=== PATIENT | male | born 1980 | race African-American/Black ===

== ENCOUNTER 2024-12-27 05:59 | Emergency (ER) | payer SELFPAY ==
--- OUTSIDE RECORDS SUMMARY | 2024-12-27 06:02 | XMS REPORT | Continuity of Care Document ---
Author Name Unknown Address [address] [facility] [address] [place] [address] [facility] [place] Address [address] [facility] [place] [address] Care Team Providers Care Drying Tunnel Operator Name Role Phone Frances Ortega Attending Clinician Unavailable Irma Long Admitting Clinician Unavailable Payers Payer Name Policy Type Policy Number Effective Date Expirati on Date Source Allergies, Adverse Reactions, Alerts Allergy Name Allergy Type Status Severity Reaction(s) Onset Date Inactive Date Treating Clinician Comments Source No Known Allergie s DA Active U 2023-09 00:00: 00 [facility] Procedures Procedure Date / Time Performed Performing Clinicia n Source MEASURE OF CARDIAC SAMPL PRESSURE, L HEART, PERC 2024-08-24 00:00:00 [facility] FLUOROSCOPY OF MULT COR ART USING L OSM CONTRAST 2024-08-24 00:00:00 [facility] FLUOROSCOPY OF LEFT HEART USING LOW OSMOLAR CONTRA 2024-08-24 00:00:00 [facility] Encounters Start Date/Time End Date/Time Encounter Type Admission Type Attending Clinicians Care Facility Care Department Encounter ID Source 2024-08-24 05:43:00 2024-08-25 12:52:00 Inpatient EM Frances Ortega [facility] MEDI.01 [id number] [facility] Results Test Description Test Time Test Comments Results Result Co mments Source COMMENTS: To be done morning of Heart CathPROTHROMBIN [id number] 05:41:00* Test Item Value Reference Range Interpretation Comme nts PROTHROMBIN TIME PATIENT (test code = PTP) 12.7 SECONDS 9.3-12.9 N INTERNATIONAL NORMAL RATIO (test code = INR) 1.1 0.8-1.2 N TARGET INR BY INDICATION Indication INR1. Prophylaxis of venous thrombosis 2.0 - 3.0 (orthopedic surgery), Prophylaxis of venous thrombosis (other than high-risk surgery), Treatment of Deep Vein Thrombosis/Pulmonary Embolism, Prevention of systemic embolism - Tissue heart valves, Acute Myocardial Infarction (to prevent systemic embolism), Valvular heart disease, Atrial Fibrillation, Bileaflet mechanical valve in aortic position.2. Mechanical prosthetic valves (high risk), 2.5 - 3.5 Presence of Lupus Anticoagulant or Antiphospholipid Antibodies, Prevention of systemic embolism - Acute Myocardial Infarction (to prevent recurrent infarct). COMMENTS: STAT if not done within 24 hours prior to initiation of heparinComment: infusionTHROMBOPLASTIN TIME [id number] 05:41:00* Test Item Value Reference Range Interpretation Comme nts THROMBOPLASTIN TIME PARTIAL (test code = PTT) 30.4 Seconds 25.0-39.5 N Therapeutic Rang e: 58.8 - 96.0 Seconds Effective 07/09/2024 COMMENTS: STAT if not done within 24 hours prior to initiation of heparinComment: infusionCBC W/AUTO [id number] 05:31:00* Test Item Value Reference Range Interpretation Comme nts WHITE BLOOD CELL (test code = WBC) 7.0 x10 3/uL 4.5-11.0 N RED BLOOD CELL (test code = RBC) 5.60 x10 6/uL 4.00-5.60 N HEMOGLOBIN (test code = HGB) 14.8 g/dL 12.5-16.9 N HEMATOCRIT (test code = HCT) 45.2 % 37.5-50.7 N MEAN CELL VOLUME (test code = MCV) 80.7 fL 81.0-99.0 L MEAN CELL HGB (test code = MCH) 26.4 pg 27.0-33.0 L MEAN CELL HGB CONCETRATION (test code = MCHC) 32.7 g/dL 33.0-37.0 L RED CELL DISTRIBUTION WIDTH CV (test code = RDW) 15.4 % 11.5-14.5 H RED CELL DISTRIBUTION WIDTH SD (test code = RDW-SD) 43.9 fL 37.0-54.0 N PLATELET COUNT (test code = PLT) 220 x10 3/uL 150-400 N MEAN PLATELET VOLUME (test c ode = MPV) 9.0 fL 7.0-9.0 N NEUTROPHIL % (test code = NT%) 51.6 % 56.0-77.0 L IMMATURE GRANULOCYTE % (test code = IG%) 0.9 % 0.0-2.0 N LYMPHOCYTE % (test code = LY%) 34.1 % 14.0-32.0 H MONOCYTE % (test code = MO%) 10.7 % 4.8-9.0 H EOSINOPHIL % (test code = EO%) 1.7 % 0.3-3.7 N BASOPHIL % (test code = BA%) 1.0 % 0.0-2.0 N NUCLEATED RBC % (test code = NRBC%) 0.0 % 0-0 N NEUTROPHIL # (test code = NT#) 3.64 x10 3/uL 2.0-7.6 N IMMATURE GRANULOCYTE # (test code = IG#) 0.06 x10 3/uL 0.00-0.03 H LYMPHOCYTE # (test code = LY#) 2.40 x10 3/uL 1.0-3.8 N MONOCYTE # (test code = MO#) 0.75 x10 3/uL 0.1-0.8 N EOSINOPHIL # (test code = EO#) 0.12 x10 3/uL 0.0-0.2 N BASOPHIL # (test code = BA#) 0.07 x10 3/uL 0.0-0.2 N NUCLEATED RBC # (test code = NRBC#) 0.00 x10 3/uL 0.0-0.1 N COMMENTS: To be done morning of Heart CathPROTHROMBIN [id number] 15:24:00* Test Item Value Reference Range Interpretation Comme nts PROTHROMBIN TIME PATIENT (test code = PTP) 13.7 SECONDS 9.3-12.9 H INTERNATIONAL NORMAL RATIO (test code = INR) 1.2 0.8-1.2 N TARGET INR BY INDICATION Indication INR1. Prophylaxis of venous thrombosis 2.0 - 3.0 (orthopedic surgery), Prophylaxis of venous thrombosis (other than high-risk surgery), Treatment of Deep Vein Thrombosis/Pulmonary Embolism, Prevention of systemic embolism - Tissue heart valves, Acute Myocardial Infarction (to prevent systemic embolism), Valvular heart disease, Atrial Fibrillation, Bileaflet mechanical valve in aortic position.2. Mechanical prosthetic valves (high risk), 2.5 - 3.5 Presence of Lupus Anticoagulant or Antiphospholipid Antibodies, Prevention of systemic embolism - Acute Myocardial Infarction (to prevent recurrent infarct). TROP-I HIGH [id number] 10:33:00* Test Item Value Reference Range Interpretation Comme nts TROP-I HIGH SENSITIVITY (test code = TROPIHS) 4375 ng/L 0-54 HH CAUTION: Units o f the current test methodology (ng/L) differfrom the prior test methodology (ng/mL) by a factor of 1000. 99th Percentile Upper Reference Limit (URL): Females: 34 ng/LMales: 54 ng/L In order to distinguish acute elevations of high sensitivitytroponin from other clinical conditions, the FourthUniversal Definition of Myocardial Infarction stressesclinical assessment and the demonstration of a rise and/orfall in serial troponin results above the URL. These results were obtained using Siemens Atellica IM TnIHreagent. Results from different methodologies should not becompared to one another as quantitative results and URLs mayvary by method. HEPATIC FUNCTION [id number] 09:39:00* Test Item Value Reference Range Interpretation Comme nts TOTAL PROTEIN (test code = PROT) 7.4 g/dL 6.4-8.2 N ALBUMIN (test code = ALB) 3.70 g/dL 3.4-5.0 N BILIRUBIN TOTAL (test code = BILT) 0.30 mg/dL 0.0-1.0 N BILIRUBIN DIRECT (test code = BILD) < 0.10 MG/DL 0.1-0.3 L BILIRUBIN INDIRECT (test cod e = BILIND) 0.20 MG/DL SGOT/AST (test code = AST) 30 IUnit/L 8-34 N SGPT/ALT (test code = ALT) 23 IUnit/L 10-49 N ALKALINE PHOSPHATASE TOTAL ( test code = ALKP) 104 IUnit/L 20-125 N [id number] 09:39:00* Test Item Value Reference Range Interpretation Comme nts MAGNESIUM (test code = MAG) 2.01 mg/dL 1.6-2.6 N TSH REFLEX TO [id number] 09:39:00* Test Item Value Reference Range Interpretation Comme nts TSH REFLEX TO FT4 (test code = TSHREFLEX) 1.05 IU/mL 0.42-5.47 N BASIC METABOLIC [id number] 09:39:00* Test Item Value Reference Range Interpretation Comme nts SODIUM (test code = NA) 138 mEq/L 134-147 N POTASSIUM (test code = K) 4.3 mEq/L 3.4-5.0 N CHLORIDE (test code = CL) 106 mEq/L 100-108 N CARBON DIOXIDE (test code = CO2) 24 mEq/l 21-33 N ANION GAP (test code = GAP) 12 0-20 N GLUCOSE (test code = GLU) 84 mg/dL 77-141 N BLOOD UREA NITROGEN (test code = BUN) 11 mg/dL 7-25 N GLOMERULAR FILTRATION RATE (test code = GFR) 94.6 95-105 L The Glomerular Filtration Rate is a calculated parameterbased on serum Creatinine, patient age and sex. GFR valuesless than 60 mL/min/1.73 square meters are indicative ofChronic Kidney Disease. Values less than 15 mL/min/1.73square meters indicate Kidney failure. The calculation forGFR is based on the CKD-EPI (2020) calculation. This formulais race indifferent and is the recommended formula for GFRby the National Kidney Foundation for Adults.The GFR will not calculate if the sex is unknown or if thepatient's age is <18 years. CREATININE (test code = CREAT) 1.0 mg/dL 0.6-1.3 N CALCIUM (test code = CA) 10.0 mg/dL 8.0-10.5 N LIPID PROFILE (CORONARY RISK)2024-08-24 09:39:00* Test Item Value Reference Range Interpretation Comme nts TRIGLYCERIDES (test code = TRIG) 254 mg/dL 40-150 H CHOLESTEROL (test code = CHOL) 184 mg/dL <200 CHOLESTEROL/HDL RATIO (test code = CHOLHDL) 6.05 RATIO 3.43-4.97 H RISK ASSOCIATED WITH CHOL/HDL RATIOS: RISK MALE FEMALE1/2 AVERAGE 3.43 3.27AVERAGE 4.97 4.442X AVERAGE 9.55 7.053X AVERAGE 23.39 11.04 NOTE THAT THE REFERENCE VALUE IS RELATEDTO RISK LEVELS RECOMMENDED BY THE NATL.HEART, LUNG, AND BLOOD INST. HDL CHOLESTEROL (test code = HDL) 30.4 MG/DL 40-60 L HDL Interpreta tion < 40.0 mg/dL Low (undesirable, high risk)> 60.0 mg/dL High (desirable, low risk) Reference interval for healthy adults was established by theNational Cholesterol Education Program (NCEP). LIPOPROTEIN LDL (test code = LDL) 129.0 mg/dL 0-100 H <100 [id number] 0-129 NEAR OPTIMAL/ABOVE [id number] HIGH>FB=588 VERY HIGH*Guidelines provided by the National Cholesterol EducationProgram Adult Treatment Panel III CBC W/O [id number] 07:21:00* Test Item Value Reference Range Interpretation Comme nts WHITE BLOOD CELL (test code = WBC) 11.0 x10 3/uL 4.5-11.0 N RED BLOOD CELL (test code = RBC) 5.52 x10 6/uL 4.00-5.60 N HEMOGLOBIN (test code = HGB) 14.7 g/dL 12.5-16.9 N HEMATOCRIT (test code = HCT) 44.9 % 37.5-50.7 N MEAN CELL VOLUME (test code = MCV) 81.3 fL 81.0-99.0 N MEAN CELL HGB (test code = MCH) 26.6 pg 27.0-33.0 L MEAN CELL HGB CONCETRATION (test code = MCHC) 32.7 g/dL 33.0-37.0 L RED CELL DISTRIBUTION WIDTH CV (test code = RDW) 15.7 % 11.5-14.5 H RED CELL DISTRIBUTION WIDTH SD (test code = RDW-SD) 45.1 fL 37.0-54.0 N PLATELET COUNT (test code = PLT) 237 x10 3/uL 150-400 N MEAN PLATELET VOLUME (test c ode = MPV) 9.4 fL 7.0-9.0 H TROP-I HIGH [id number] 06:46:00* Test Item Value Reference Range Interpretation Comme nts TROP-I HIGH SENSITIVITY (test code = TROPIHS) 2767 ng/L 0-54 HH Critical result called to AKBAR ACHCHRISSIE Little [id number] at 0644 08/24/24Nurse read back result and tech confirmed it's correct? YESCAUTION: Units of the current test methodology (ng/L) differfrom the prior test methodology (ng/mL) by a factor of 1000. 99th Percentile Upper Reference Limit (URL): Females: 34 ng/LMales: 54 ng/L In order to distinguish acute elevations of high sensitivitytroponin from other clinical conditions, the FourthUniversal Definition of Myocardial Infarction stressesclinical assessment and the demonstration of a rise and/orfall in serial troponin results above the URL. These results were obtained using Siemens Atellica IM TnIHreagent. Results from different methodologies should not becompared to one another as quantitative results and URLs mayvary by method. Notes Date/Time Note Provider Source 2024-10-07 00:31:00 [facility] DT Operative Note REPORT#:[id number] REPORT STATUS: Signed REPORT INITIALIZATION DATE:10/07/24 TIME: 003 PATIENT: CARMEN TAPIA UNIT #: [id number] ROOM/BED: [id number] : 78 AGE: 44 SEX: M ATTEND: Frances Ortega DO ADM AUTHOR: Christina Quesada MD REPT SERVICE DT/TIME: 08/24/242049 * ALL edits or amendments must be made on the electronic/computer document * Operative Report Operative Note Note: Date of procedure: 08/24/2024 Indication for procedure: Chest pain, patient was ruled in for non-STEMI Procedure performed: 1. Ultrasound-guided vascular access of the right common femoral artery 2. Left heart catheterization plus coronary angiogram 3. Moderate sedation Procedure description: After informed consent was obtained patient was brought into the Production Team Member patient was prepped and draped sterile fashion right common femoral artery was accessed using ultrasound guidance and micropuncture technique then 6 Jordanian sheath was inserted. Then I went with JL 4 catheter engage the left main multiple pictures were taken. Then I went up with a JR4 catheter across the aortic valve obtained LVEDP then I performed a pullback there was no bleeding. Then I engage the RCA multiple pictures were taken. Findings: 1. Left main: Large size vessel trifurcates into LAD, ramus intermedius and left circumflex 2. LAD: Large size vessel patent 3. Left circumflex: Large size vessel gives multiple OM's there is a 50 to 60% disease in the mid left circumflex 4. RCA: Large size vessel dominant gives RPDA and posterior lateral branch and patent. Impression/plan: Moderate disease in the left circumflex otherwise patent coronary arteries. Recommend DAPT for 1 year then aspirin for lifelong and high intensity statins. at 0034 RPT #:[id number] END OF REPORT [facility] 2024-08-25 23:21:00 [id number] [place] [address] PATIENT NAME: CARMEN TAPIA ADMIT DATE: 08/24/24 ACCOUNT NO: [id number] ROOM NO: [address] AGE: 43 REPORT TYPE: eECHOCARDIOGRAM REPORT SEX: M ADMITTING PHYSICIAN:Irma Long MD ATTENDING PHYSICIAN:Frances Ortega DO *[place] [address] Transthoracic Echocardiogram Patient: Carmen Tapia Study Date: 08/24/2024 BP: 184 / 108 URN: [id number] Location: : 1980 Age: 43 Gender: M Height: 71 in / 180.3 cm Weight: 220 lb / 99.8 kg BMI/BSA: 30.7 kg/m 2 / 2.26 m 2 *Ordering Physician: * Irma Long *Interpreting Physician: * Christina Quesada MD *Social Media Strategist: * Tessa Duckworth Indications: NSTEMI. Study data: Transthoracic echocardiogram. Procedure: A transthoracic echocardiogram was performed. Image quality was adequate. Complete 2D, complete spectral Doppler, and color Doppler. Location: Bedside. Patient room number: CVPREP 3. Heart rate: 73 bpm. Findings Left ventricle: The cavity size is normal. Wall thickness is mildly increased. Systolic function is normal. The estimated ejection fraction is 55-60%. Wall motion is normal; there are no regional wall motion abnormalities. Left ventricular diastolic function parameters are normal. Right ventricle: The cavity size is normal. Systolic function is normal. PATIENT NAME: CARMEN TAPIA Left atrium: The atrium is normal in size. Right atrium: The atrium is normal in size. Aorta: Aortic root: The root is normal-sized. Aortic valve: The valve is structurally normal. The valve is trileaflet. There is no evidence of stenosis. There is no regurgitation. Mitral valve: The valve is structurally normal. There is no evidence of stenosis. There is trace regurgitation. Tricuspid valve: The valve is structurally normal. There is trivial regurgitation. Pulmonic valve: The valve is structurally normal. There is no regurgitation. Pericardium: There is no pericardial effusion. Pulmonary arteries: The main pulmonary artery is normal-sized. Systemic veins: Inferior vena cava: The IVC is normal-sized. Measurements Left ventricle Value Ref GLS, 2D -15 % --------- GUERLINE, LAX 4.2 cm 4.2 - 5.8 ESD, LAX 3.0 cm 2.5 - 4.0 FS, LAX 29 % 25 - 43 IVS, ED 1.3 cm 0.6 - 1.0 PW, ED 1.3 cm 0.6 - 1.0 IVS/PW, ED 1 --------- EF 56 % 52 - 72 E', lat marisabel, TDI 11.9 cm/sec >=10.0 E/e', lat marisabel, TDI 8 <=13 E', med marisabel, TDI 12.0 cm/sec >=7.0 E/e', med marisabel, TDI 8 --------- E', avg, TDI 12.0 cm/sec --------- E/e', avg, TDI 8 <=14 LVOT Value Ref Diam, S 2.00 cm --------- Area 3.1 cm 2 --------- Peak kayy, S 1.18 m/sec --------- Mean kayy, S 0.74 m/sec --------- VTI, S 24.3 cm --------- Peak grad, S 6 mm Hg --------- Mean grad, S 3 mm Hg --------- SV 76 ml --------- SV/bsa 34 ml/m 2 --------- Right ventricle Value Ref GUERLINE, LAX 2.0 cm --------- Pressure, S 18 mm Hg --------- RVOT Value Ref Peak v, S 0.81 m/sec --------- Peak grad, S 3 mm Hg --------- PATIENT NAME: CARMEN TAPIA Left atrium Value Ref Vol/bsa, S 22 ml/m 2 16 - 34 Vol/bsa, ES, 1-p A4C 19 ml/m 2 12 - 37 Vol, ES, 2-p 52 ml --------- Vol/bsa, ES, 2-p 23 ml/m 2 16 - 34 Vol/bsa, ES, A/L 19 ml/m 2 16 - 34 AP dim, ES MM 3.2 cm 3.0 - 4.0 LA/Ao root ratio, MM 1 --------- Aortic valve Value Ref Leaflet sep, MM 1.87 cm --------- Peak v, S 1.2 m/sec --------- Mean v, S 0.7 m/sec --------- VTI, S 23.1 cm --------- Mean grad, S 2 mm Hg --------- Peak grad, S 5.8 mm Hg --------- LVOT/AV, VTI ratio 1.05 --------- SHAHZAD, VTI 3.30 cm 2 --------- LVOT/AV, Vpeak ratio 0.98 --------- SHAHZAD, Vmax 3.09 cm 2 --------- Mitral valve Value Ref E-septal separation 0.6 cm --------- E-F slope 0.07 m/sec --------- Peak E 0.93 m/sec --------- Peak A 0.63 m/sec --------- Decel time 146 ms --------- PHT 43 ms --------- Peak grad, D 3.4 mm Hg --------- Peak E/A ratio 1.48 --------- MVA, PHT 5.1 cm 2 --------- Tricuspid valve Value Ref TR peak v 1.6 m/sec <=2.8 Peak RV-RA grad, S 10 mm Hg --------- Aortic root Value Ref Root diam, ED MM 3.2 cm --------- Pulmonary artery Value Ref Pressure, S 15.0 mm Hg --------- Systemic veins Value Ref Estimated CVP 8 mm Hg --------- Conclusions Summary: 1. Left ventricle: The cavity size is normal. Wall thickness is mildly increased. Systolic function is normal. The estimated ejection fraction is 55-60%. Wall motion is normal; there are no regional wall motion abnormalities. Left ventricular diastolic function parameters are normal. PATIENT NAME: CARMEN TAPIA 2. Right ventricle: The RV pressure during systole is 18 mm Hg. 3. Pericardium, extracardiac: There is no pericardial effusion. Electronically signed by Christina Quesada MD 08/25/2024 23:21 at 2321 PATIENT NAME: CARMEN TAPIA [facility] 2024-08-25 12:19:00 [facility] Cardiology Progress Note REPORT#:[id number] REPORT STATUS: Signed REPORT INITIALIZATION DATE:08/25/24 TIME: 1219 PATIENT: CARMEN TAPIA UNIT #: [id number] ROOM/BED: [place] [id number] : [birth year] AGE: 44 SEX: M ATTEND: Aroldo Ortegaen ADM AUTHOR: Faby Yu AGACNP REPT SERVICE DT/TIME: 08/25/24 1219 * ALL edits or amendments must be made on the electronic/computer document * Subjective Patient reports: No: complaints. Objective General VS/I O: 24 hour I O ending at 0700: 08/25 0700 08/24 1900 Intake Total Output Total Balance Patient 97.5 kg 100 kg Weight Weight Bed scale Stated/Reported Measurement Method Vital Signs: Date Time Temp Pulse Resp B/P B/P Pulse O2 O2 Flow FiO2 Mean Ox Delivery Rate 08/25 1134 36.5 78 17 139/89 105.5 98 Room air 08/25 1028 89 141/92 107.9 08/25 0814 73 142/93 109.1 08/25 0805 37.1 78 18 158/106 123.1 99 Room air 08/25 0438 36.9 77 16 131/86 101.2 98 08/25 0033 36.7 77 18 145/77 99.8 98 08/24 2201 37.1 83 16 155/99 117.4 96 08/24 1557 37.1 78 16 181/89 98 PATIENT WEIGHT: Weight (lb): 214 Weight (oz): 15.21 Weight (kg): 97.500 Medications: Active Meds + DC'd Last 24 Hrs Carvedilol (COREG) 0 .STK-MED ONE PO (DC) Atorvastatin Calcium (LIPITOR) 40 MG 2100 PO Hydralazine HCl (APRESOLINE) 0 .STK-MED ONE .ROUTE (DC) Midazolam HCl (VERSED) 0 .STK-MED ONE .ROUTE (DC) Fentanyl Citrate (SUBLIMAZE) 0 .STK-MED ONE .ROUTE (DC) Midazolam HCl (VERSED) 0 .STK-MED ONE .ROUTE (DC) Heparin Sodium (HEPARIN SODIUM) 0 .STK-MED ONE .ROUTE (DC) Heparin Sodium/Sodium Chloride (HEPARIN 1,000 UNITS/NS 500ML) 500 ML .STK- MED ONE IV (DC) Lidocaine HCl (LIDOCAINE HCL/PF) 0 .STK-MED ONE .ROUTE (DC) Heparin Sodium/Sodium Chloride (HEPARIN 2,000 UNITS/NS 1,000mL) 1,000 ML .STK-MED ONE IV (DC) Iopamidol (ISOVUE-370 100ML) 0 .STK-MED ONE IV (DC) Nitroglycerin/Dextrose (NITROGLYCERIN 50,000MCG/D5W 250ML) 250 ML .STK-MED ONE IV (DC) Enoxaparin Sodium (lovENOX) 100 MG Q12H SUBQ (CAN) Carvedilol (COREG) 3.125 MG C BK DIN PO Heparin Sodium (HEPARIN 5000 UNITS/ML) 6,000 UNIT ONCE ONE IV (CAN) Heparin Sodium (HEPARIN 5000 UNITS/ML) 4,000 UNIT ONCE ONE IV (DC) Heparin Sodium (HEPARIN 5000 UNITS/ML) 5,000 UNIT ASDIR PRN PRN IV Heparin Sodium (HEPARIN 5000 UNITS/ML) 4,000 UNIT ASDIR PRN PRN IV Heparin Sodium (Porcine) (HEPARIN 25,000 UNITS/ 1/2NS 500ML) 500 ML ASDIR IV (PEND) Losartan Potassium (COZAAR) 25 MG DAILY PO Aspirin (ASPIRIN) 81 MG DAILY PO Famotidine (PEPCID) 20 MG DAILY PO Nicotine (NICODERM) 14 MG DAILY TRANSDERM Acetaminophen (TYLENOL) 650 MG Q4H PRN PRN PO Docusate Sodium (COLACE) 100 MG BID PRN PRN PO Hydralazine HCl (APRESOLINE) 10 MG Q6H PRN PRN IV Hydrocodone Bitart/Acetaminophen (NORCO 5/325) 1 TAB Q6H PRN PRN PO Hydrocodone Bitart/Acetaminophen (NORCO 10/325) 1 TAB Q4H PRN PRN PO Morphine Sulfate (morphine SULFATE) 4 MG Q4H PRN PRN IV Nitroglycerin (NITROSTAT) 0.4 MG Q5M PRN PRN SL Ondansetron HCl (ZOFRAN) 4 MG Q4H PRN PRN IV Potassium Chloride (POTASSIUM CHLORIDE 20MEQ TAB.ER) 40 MEQ DAILY PRN PRN PO Sodium Chloride (SODIUM CHLORIDE 0.9%) 1,000 ML .[id number] IV Physical Exam General appearance: alert, awake ENT: normal nose Neck: full range of motion, non-tender, normal thyroid Cardiovascular: CV assessment: regular rate and rhythm, BP pulses = bilaterally, normal heart sounds, pedal pulses present Respiratory: clear to auscultation, no distress Abdomen: soft, non-tender, normal bowel sounds, no distention Genitourinary: no bladder distention, no flank pain, no urinary catheter Upper extremity: UE assessment: normal capillary refill, normal temperature Lower extremity: LE assessment: normal capillary refill, normal temperature Right groin site: intact, no bleeding, no bruit, no drainage Musculoskeletal: full range of motion, normal inspection, straight leg raise Skin: dry, intact, normal color Psychiatry: normal affect, normal mood Results Findings/Data: Laboratory Tests 08/25 446 Chemistry Sodium (134 - 147 mEq/L) 139 Potassium (3.4 - 5.0 mEq/L) 4.1 Chloride (100 - 108 mEq/L) 106 Carbon Dioxide (21 - 33 mEq/l) 26 Anion Gap (0 - 20) 12 BUN (7 - 25 mg/dL) 9 Creatinine (0.6 - 1.3 mg/dL) 0.8 Glomerular Filtr Rate (95 - 105) 111.2 H Glucose (77 - 141 mg/dL) 81 Calcium (8.0 - 10.5 mg/dL) 8.8 Laboratory Tests 08/25 1446 Coagulation INR (0.8 - 1.2) 1.1 1.2 PTT (Miguel Ángel) (25.0 - 39.5 Seconds) 30.4 PT Patient/Control Mix (9.3 - 12.9 SECONDS) 12.7 13.7 H Laboratory Tests 08/25 446 Hematology WBC (4.5 - 11.0 x10 3/uL) 7.0 RBC (4.00 - 5.60 x10 6/uL) 5.60 Hgb (12.5 - 16.9 g/dL) 14.8 Hct (37.5 - 50.7 %) 45.2 MCV (81.0 - 99.0 fL) 80.7 L MCH (27.0 - 33.0 pg) 26.4 L MCHC (33.0 - 37.0 g/dL) 32.7 L RDW (11.5 - 14.5 %) 15.4 H Plt Count (150 - 400 x10 3/uL) 220 MPV (7.0 - 9.0 fL) 9.0 Neut % (Auto) (56.0 - 77.0 %) 51.6 L Lymph % (Auto) (14.0 - 32.0 %) 34.1 H Giles % (Auto) (4.8 - 9.0 %) 10.7 H Eos % (Auto) (0.3 - 3.7 %) 1.7 Baso % (Auto) (0.0 - 2.0 %) 1.0 Neut # (Auto) (2.0 - 7.6 x10 3/uL) 3.64 Lymph # (Auto) (1.0 - 3.8 x10 3/uL) 2.40 Giles # (Auto) (0.1 - 0.8 x10 3/uL) 0.75 Eos # (Auto) (0.0 - 0.2 x10 3/uL) 0.12 Baso # (Auto) (0.0 - 0.2 x10 3/uL) 0.07 Abs Immat Gran (auto) (0.00 - 0.03 x10 3/uL) 0.06 H Immature Gran % (0.0 - 2.0 %) 0.9 Nucleated RBC % (0 - 0 %) 0.0 Nucleated RBCs # (Man) (0.0 - 0.1 x10 3/uL) 0.00 Microbiology Date/Time Procedure - Status Source Growth 08/24 1338 MRSA DNA Surveillance Screen - COMP NASAL Results: labs reviewed, vital signs reviewed, rhythm personally rev'd Diagnosis, Assessment Plan Plan discussed with: patient, spouse/partner, collaborating MD, nurse Free Text DxA P Notes Free Text DxA P Notes: 43-year-old male no significant past medical history except for chronic tobacco use smokes half a pack for 30 years transferred from [facility] with symptoms of chest pain and elevated troponin level patient had EKG did not show history of any STEMI. 1. NSTEMI * 08/24/24: s/p LHC, showed RCA with 60% stenosis, continue medical therapy and agressive risk factors modification (smoking cessation, control blood pressure) * no need for P2Y12i as he did not have stent * continue ASA, statin, BB 2. Hypertension * BP improved * continue carvedilol * advised to check BP daily and record 3. Tobacco abuse * counseled to quit smoking Ok to [place] home. Outpatient follow-up with Dr. Quesada. Medical decision making by Dr. Quesada. at 1252 at [phone] RPT #:[id number] END OF REPORT [facility] 2024-08-25 11:22:00 [facility] Hospitalist Discharge Summary REPORT#:[id number] REPORT STATUS: Signed REPORT INITIALIZATION DATE:08/25/24 TIME: 1121 PATIENT: CARMEN TAPIA UNIT #: [id number] ROOM/BED: [place] [id number] : [birth year] AGE: 43 SEX: M ATTEND: Frances Ortega DO ADM AUTHOR: Frances Ortega DO REPT SERVICE DT/TIME: 08/25/24 112 * ALL edits or amendments must be made on the electronic/computer document * General Information Date of admission: Observation Start Date: Date of admission: 08/24/24 Discharge date: 08/25/24 Discharge diagnosis: nstemi Hospital course: 43-year-old male with PMH of tobacco abuse, transferred from [facility] for higher level of care for cardiology evaluation for NSTEMI, where patient presented with chest pain, found to have troponin of 2253 and BNP of 268. Patient reports symptoms started 4 days ago, intermittent chest pain, in retrosternal, lower right and lower left chest location, radiating to left upper extremity, dull in nature, associated with heartburn. Patient denies any other complaint like headache, dizziness, sweating, shortness of breath, nausea, diarrhea or constipation or any urinary symptoms or leg swelling. Patient's blood pressure was elevated at outside hospital, here it is elevated to 140s. He does not have any history of hypertension. He had stress test and echocardiogram done 8 months ago for yearly checkup at his work, at that time stress test was negative. No other complaints. patient s/p LHC w no intervention .10/25/23: s/p LHC, showed RCA with 60% stenosis, continue medical therapy and agressive risk factors modification ( smoking cessation, control blood pressure). DC 34 min Consultants: cardiology Free Text DxA P Notes Free text DxA P notes: This is a 43-year-old male with PMH of tobacco abuse, transferred from [facility] for higher level of care for cardiology evaluation for NSTEMI , where patient presented with chest pain, found to have troponin of 2253 and BNP of 268. Assessment and plans: NSTEMI: First set troponin elevated to 2253, trend troponin x 2 EKG NSR Complaint of intermittent chest pain for 4 days duration. Currently does not complain of chest pain Follow-up with TSH, lipid panel, echocardiogram Telemonitoring Patient received aspirin, Plavix at outside facility Baby aspirin, atorvastatin, full dose Lovenox, as needed NTG Cardiology consult Keep patient n.p.o. for possible intervention Elevated BNP: Follow-up with echocardiogram Elevated BP: No previous history of HTN, elevated BP may be related to anxiety Monitor, start on BP medication if BP continues to stay elevated Hydralazine as needed Acid reflux: Famotidine Tobacco abuse: Smokes 7 cigarettes daily Counseled to quit Nicotine patch Patient is not on any prescription medication at home N.p.o., IV fluid hydration till seen by cardiology Lovenox for DVT prophylaxis Famotidine for acid reflux Labs now CODE STATUS: Full code NOK is patient's girlfriend, Zoran Patient does not have advanced directive Med Rec Med Rec Discharge meds: Start taking the following new medications: NICOTINE (NICODERM CQ 14 MG) 14 MG/24 HOUR PATCH 14 MILLIGRAM TRANSDERMAL DAILY. Days = 30 Qty = 30 Refills = 3 ATORVASTATIN (LIPITOR) 40 MG TAB 40 MILLIGRAM ORAL 2100 Days = 30 Qty = 30 Refills = 3 LOSARTAN (LOSARTAN) 25 MG TAB 25 MILLIGRAM ORAL DAILY. Days = 30 Qty = 30 Refills = 3 carvediloL (carvediloL) 3.125 MG TAB 3.125 MILLIGRAM ORAL WITH BREAKFAST AND DINNER. Days = 30 Qty = 60 Refills = 3 ASPIRIN EC (ECOTRIN) 81 MG TAB.EC 81 MILLIGRAM ORAL DAILY. Days = 30 Qty = 30 Refills = 3 FAMOTIDINE (PEPCID) 20 MG TAB 20 MILLIGRAM ORAL DAILY. Days = 30 Qty = 30 Refills = 1 CLOPIDOGREL (PLAVIX) 75 MG TAB 75 MILLIGRAM ORAL DAILY. Days = 30 Qty = 30 Refills = 3 Objective Head/Eyes: atraumatic, clear cornea, EOMI, normal conjunctiva/sclera, PERRLA ENT: moist mucosal membranes Neck: full range of motion Cardiovascular: normal heart sounds, regular rate rhythm Respiratory: clear to auscultation Abdomen: normal bowel sounds, soft Extremities: moves all, no edema Musculoskeletal: normal inspection Neuro/ASSESSMENT COORDINATOR: alert, oriented X 3, CNII-XII intact, normal speech Skin: intact, no rash Psychiatry: normal affect Discharge Instructions PCP Discharge to: Home/Self Care Additional Discharge Routines: Orthotics Assistant Follow-Up, Add. instructions Diet: Cardiac Activity: As Tolerated, Light Duty Additional instructions: Please take medication as prescribed and control blood pressure. Please keep blood pressure log and stop smoking. Please return if symptoms worsen. Follow-up Appointments Consulting provider 1: Provider 1: Christina Quesada MD Specialty: CardiologyInterventional Consult follow up timeframe: In 1-2 weeks Quality: Discharge Current Medications Current medication review: I attest that the foregoing medication list in the medical record is true, accurate, and complete to the best of my knowledge. Tobacco Use/Counseling Tobacco use/counseling: tobacco user at 1356 RPT #:[id number] END OF REPORT [facility] 2024-08-24 15:12:00 [facility] ([facility]) Clinical Note REPORT#:[id number] REPORT STATUS: Signed REPORT INITIALIZATION DATE:08/24/24 TIME: 1511 PATIENT: CARMEN TAPIA UNIT #: [id number] ROOM/BED: [place] [id number] : 78 AGE: 43 SEX: M ATTEND: Frances Ortega DO ADM AUTHOR: Frances Ortega DO REPT SERVICE DT/TIME: 08/24/241511 * ALL edits or amendments must be made on the electronic/computer document * Clinical Note Note: Patient evaluated by admitting physcian this AM. Patient w chest pain and NSTEMI w troponin in 2,000 and 4,000. Patient given FD lovenox, cardiology consulted . Started on antihypertensives and patient scheduled for [facility] at 4PM. Discussed risk factors , blood pressure control and smoking cessation with patient. at 1515 RPT #:[id number] END OF REPORT [facility] 2024-08-24 09:57:00 [facility] ([facility]) Cardiology Consultation REPORT#:[id number] REPORT STATUS: Signed REPORT INITIALIZATION DATE:08/24/24 TIME: 956 PATIENT: CARMEN TAPIA UNIT #: [id number] ROOM/BED: [place] [id number] : 78 AGE: 44 SEX: M ATTEND: Frances Ortega DO ADM AUTHOR: Tejas Cruz MD R1 REPT SERVICE DT/TIME: 08/24/24956 * ALL edits or amendments must be made on the electronic/computer document * History of Present Illness HPI Reason for consult: Chest pain , elevated trop. Chief complaint: Chest pain. HPI: Carmen Friend 41-year-old male patient no significant past medical history transferred from [facility] with complaints of chest pain and elevated troponin level. Patient stated he has been his usual state of health known history of chronic tobacco use smokes half a pack for past 30 years, for the past 4 days he had burning sensation in the chest associate with nausea and shortness of breath, because of the worsening of symptoms patient was initially evaluated [facility] had elevated troponin level, patient received aspirin Plavix transferred to our facility. Patient today morning received full dose of Lovenox. Group Home Manager consulted for elevated troponin level. History - Adult longitudinal Additional medical history: None Additional surgical history: Ventral hernia surgery Additional family history: Father of colon cancer. He was a smoker. Alcohol use: Denies EtOH use Drug use: Denies recreational drugs Smoking status for patients 13 years old or older: Current every day smoker Allergies: Coded Allergies: No Known Allergies (08/24/24) Review of Systems Free Text ROS Notes Free Text ROS Notes: All other systems were reviewed negative except as above mentioned in H P. Objective General VS/I O: Vital Signs: Date Time Temp Pulse Resp B/P B/P Pulse O2 O2 Flow FiO2 Mean Ox Delivery Rate 08/24 1200 97.3 76 18 160/103 122.4 100 Room air 08/24 0513 98.1 78 18 141/88 105 100 Room air 24 hour I O ending at 0700: 08/24 0700 08/23 1900 Intake Total Output Total Balance Patient 100 kg Weight Weight Stated/Reported Measurement Method PATIENT WEIGHT: Weight (lb): Weight (oz): Weight (kg): 100.000 Medications: Active Meds + DC'd Last 24 Hrs Atorvastatin Calcium (LIPITOR) 40 MG 2100 PO Enoxaparin Sodium (lovENOX) 100 MG Q12H SUBQ Aspirin (ASPIRIN) 81 MG DAILY PO Famotidine (PEPCID) 20 MG DAILY PO Nicotine (NICODERM) 14 MG DAILY TRANSDERM Enoxaparin Sodium (lovENOX) 100 MG ONCE ONE SUBQ (DC) Acetaminophen (TYLENOL) 650 MG Q4H PRN PRN PO Docusate Sodium (COLACE) 100 MG BID PRN PRN PO Hydralazine HCl (APRESOLINE) 10 MG Q6H PRN PRN IV Hydrocodone Bitart/Acetaminophen (NORCO 5/325) 1 TAB Q6H PRN PRN PO Hydrocodone Bitart/Acetaminophen (NORCO 10/325) 1 TAB Q4H PRN PRN PO Morphine Sulfate (morphine SULFATE) 4 MG Q4H PRN PRN IV Nitroglycerin (NITROSTAT) 0.4 MG Q5M PRN PRN SL Ondansetron HCl (ZOFRAN) 4 MG Q4H PRN PRN IV Potassium Chloride (POTASSIUM CHLORIDE 20MEQ TAB.ER) 40 MEQ DAILY PRN PRN PO Sodium Chloride (SODIUM CHLORIDE 0.9%) 1,000 ML .[id number] IV Physical Exam General appearance: alert, awake, oriented Head/Eyes: atraumatic, clear cornea, EOMI, normal conjunctiva/sclera, normocephalic, PERRL ENT: moist mucosal membranes, normal nose, normal pharynx Neck: full range of motion, non-tender, normal thyroid Cardiovascular: CV assessment: regular rate and rhythm, BP pulses = bilaterally, normal heart sounds, pedal pulses present Respiratory: clear to auscultation, no distress Abdomen: soft, non-tender, normal bowel sounds, no distention Genitourinary: no bladder distention Upper extremity: UE assessment: normal capillary refill, normal temperature Lower extremity: LE assessment: normal capillary refill, normal temperature Musculoskeletal: full range of motion, normal inspection, straight leg raise Skin: dry, intact, normal color Results Findings/Data: Laboratory Tests 08/24 08/24 08/24 0910 0518 0518 Chemistry Sodium (134 - 147 mEq/L) 138 Potassium (3.4 - 5.0 mEq/L) 4.3 Chloride (100 - 108 mEq/L) 106 Carbon Dioxide (21 - 33 mEq/l) 24 Anion Gap (0 - 20) 12 BUN (7 - 25 mg/dL) 11 Creatinine (0.6 - 1.3 mg/dL) 1.0 Glomerular Filtr Rate (95 - 105) 94.6 L Glucose (77 - 141 mg/dL) 84 Calcium (8.0 - 10.5 mg/dL) 10.0 Magnesium (1.6 - 2.6 mg/dL) 2.01 Total Bilirubin (0.0 - 1.0 mg/dL) 0.30 Direct Bilirubin (0.1 - 0.3 MG/DL) < 0.10 L Indirect Bilirubin (MG/DL) 0.20 AST (8 - 34 IUnit/L) 30 ALT (10 - 49 IUnit/L) 23 Total Alk Phosphatase (20 - 125 IUnit/L) 104 Troponin I High Sens (0 - 54 ng/L) 4375 *H 2767 *H Total Protein (6.4 - 8.2 g/dL) 7.4 Albumin (3.4 - 5.0 g/dL) 3.70 Triglycerides (40 - 150 mg/dL) 254 H Cholesterol (<200 mg/dL) 184 LDL Cholesterol Measurd (0 - 100 mg/dL) 129.0 H HDL Cholesterol (40 - 60 MG/DL) 30.4 L Cholesterol/HDL Ratio (3.43 - 4.97 RATIO) 6.05 H TSH (0.42 - 5.47 IU/mL) 1.05 Laboratory Tests 08/24 0518 Hematology WBC (4.5 - 11.0 x10 3/uL) 11.0 RBC (4.00 - 5.60 x10 6/uL) 5.52 Hgb (12.5 - 16.9 g/dL) 14.7 Hct (37.5 - 50.7 %) 44.9 MCV (81.0 - 99.0 fL) 81.3 MCH (27.0 - 33.0 pg) 26.6 L MCHC (33.0 - 37.0 g/dL) 32.7 L RDW (11.5 - 14.5 %) 15.7 H Plt Count (150 - 400 x10 3/uL) 237 MPV (7.0 - 9.0 fL) 9.4 H Laboratory Tests 08/24 08/24 08/24 0910 0518 0518 Chemistry Magnesium (1.6 - 2.6 mg/dL) 2.01 Troponin I High Sens (0 - 54 ng/L) 4375 *H 2767 *H Results: labs reviewed, vital signs reviewed, vital signs stable Diagnosis, Assessment Plan Consultants: cardiology Free Text DxA P Notes Free Text DxA P Notes: 43-year-old male no significant past medical history except for chronic tobacco use smokes half a pack for 30 years transferred from [facility] with symptoms of chest pain and elevated troponin level patient had EKG did not show history of any STEMI. Assessment and plan. Acute coronary syndrome NSTEMI. Chronic tobacco use. Plan. Continue with aspirin statin lipid panel serial troponins 2D echocardiogram n.p.o. for possible cardiac cath. at 1211 at 1553 RPT #:[id number] END OF REPORT [facility] 2024-08-24 05:56:00 [facility] History Physical REPORT#:[id number] REPORT STATUS: Signed REPORT INITIALIZATION DATE:08/24/24 TIME: 555 PATIENT: CARMEN TAPIA UNIT #: [id number] ROOM/BED: [place] [id number] : 78 AGE: 43 SEX: M ATTEND: Irma Long MD ADM AUTHOR: Irma Long MD REPT SERVICE DT/TIME: 08/24/24 05 * ALL edits or amendments must be made on the electronic/computer document * History of Present Illness HPI Chief complaint: Chest pain PCP: PCP: No Primary or Family Physician HPI: This is a 43-year-old male with PMH of tobacco abuse, transferred from [facility] for higher level of care for cardiology evaluation for NSTEMI , where patient presented with chest pain, found to have troponin of 2253 and BNP of 268. Patient reports symptoms started 4 days ago, intermittent chest pain, in retrosternal, lower right and lower left chest location, radiating to left upper extremity, dull in nature, associated with heartburn. Patient denies any other complaint like headache, dizziness, sweating, shortness of breath, nausea, diarrhea or constipation or any urinary symptoms or leg swelling. Patient's blood pressure was elevated at outside hospital, here it is elevated to 140s. He does not have any history of hypertension. He had stress test and echocardiogram done 8 months ago for yearly checkup at his work, at that time stress test was negative. No other complaints. Hx Obtained From Patient, Prior medical records History Past Medical Surgical Hx Additional medical history: None Additional surgical history: Ventral hernia surgery Family History Additional family history: Father of colon cancer. He was a smoker. Social History Alcohol use: Denies EtOH use Drug use: Denies recreational drugs Smoking status for patients 13 years old or older: Current every day smoker Medication/Allergy-Vaccine Hx Allergies: Coded Allergies: No Known Allergies (08/24/24) Review of Systems Constitutional: Denies: chills, fever. Respiratory: Denies: non productive cough, productive cough (sputum), SOB. Cardiovascular: Reports: chest pain. Denies: edema. GI: Reports: GERD. Denies: abdominal pain, constipation, diarrhea, nausea, vomiting. : Denies: dysuria. Neuro: Denies: focal weakness, numbness. Psych: Denies: anxiety. OBJECTIVE VS/I O: Vital Signs Date Temp Pulse Resp B/P B/P Mean Pulse Ox FiO2 08/24 98.1 78 18 141/88 105 100 Last Documented: Result Date Time Pulse Ox 100 08/24 513 B/P 141/88 08/24 513 B/P Mean 105 08/24 513 O2 Delivery Room air 08/24 513 Temp 98.1 08/24 513 Pulse 78 08/24 513 Resp 18 08/24 513 24 hour I O ending at 0700: 08/24 0700 08/23 1900 Intake Total Output Total Balance Patient 100 kg Weight Weight Stated/Reported Measurement Method Patient Weight and BMI Weight (kg): 100.000 BMI: 30.7 Medications: Active Meds + DC'd Last 24 Hrs Aspirin (ASPIRIN) 81 MG DAILY PO (UNV) Famotidine (PEPCID) 20 MG DAILY PO (UNV) Nicotine (NICODERM) 14 MG DAILY TRANSDERM (UNV) Acetaminophen (TYLENOL) 650 MG Q4H PRN PRN PO (UNV) Docusate Sodium (COLACE) 100 MG BID PRN PRN PO (UNV) Enoxaparin Sodium (lovENOX) 100 MG Q12H SUBQ (UNV) Hydralazine HCl (APRESOLINE) 10 MG Q6H PRN PRN IV (UNV) Hydrocodone Bitart/Acetaminophen (NORCO 5/325) 1 TAB Q6H PRN PRN PO (UNV ) Hydrocodone Bitart/Acetaminophen (NORCO 10/325) 1 TAB Q4H PRN PRN PO ( UNV) Morphine Sulfate (morphine SULFATE) 4 MG Q4H PRN PRN IV (UNV) Nitroglycerin (NITROSTAT) 0.4 MG Q5M PRN PRN SL (UNV) Ondansetron HCl (ZOFRAN) 4 MG Q4H PRN PRN IV (UNV) Potassium Chloride (POTASSIUM CHLORIDE 20MEQ TAB.ER) 40 MEQ DAILY PRN PRN PO (UNV) Sodium Chloride (SODIUM CHLORIDE 0.9%) 1,000 ML .[id number] IV (UNV) General appearance: alert, awake, oriented Head/Eyes: atraumatic, clear cornea, EOMI, normal conjunctiva/sclera, PERRLA ENT: moist mucosal membranes Neck: full range of motion Cardiovascular: normal heart sounds, regular rate rhythm Respiratory: clear to auscultation Abdomen: normal bowel sounds, soft Extremities: moves all, no edema Musculoskeletal: normal inspection Neuro/ASSESSMENT COORDINATOR: alert, oriented X 3, CNII-XII intact, normal speech Skin: intact, no rash Psychiatry: normal affect Diagnosis, Assessment Plan Free Text A P: This is a 43-year-old male with PMH of tobacco abuse, transferred from [facility] for higher level of care for cardiology evaluation for NSTEMI , where patient presented with chest pain, found to have troponin of 2253 and BNP of 268. Assessment and plans: NSTEMI: First set troponin elevated to 2253, trend troponin x 2 EKG NSR Complaint of intermittent chest pain for 4 days duration. Currently does not complain of chest pain Follow-up with TSH, lipid panel, echocardiogram Telemonitoring Patient received aspirin, Plavix at outside facility Baby aspirin, atorvastatin, full dose Lovenox, as needed NTG Cardiology consult Keep patient n.p.o. for possible intervention Elevated BNP: Follow-up with echocardiogram Elevated BP: No previous history of HTN, elevated BP may be related to anxiety Monitor, start on BP medication if BP continues to stay elevated Hydralazine as needed Acid reflux: Famotidine Tobacco abuse: Smokes 7 cigarettes daily Counseled to quit Nicotine patch Patient is not on any prescription medication at home N.p.o., IV fluid hydration till seen by cardiology Lovenox for DVT prophylaxis Famotidine for acid reflux Labs now CODE STATUS: Full code KOBE is patient's girlfriend, Zoran Patient does not have advanced directive Consultants: cardiology Plan discussed with: patient Time spent: Time spent on patient care (minutes): 65 Resuscitation discussion: Discussed with: patient Code status: full code Quality: Gen Med Crit Care VTE Prophylaxis VTE prophylaxis initiated: yes Current Medications Current medication review: I attest that the foregoing medication list in the medical record is true, accurate, and complete to the best of my knowledge. BMI Screening > 25 or < 18.5 Patient's BMI: Current BMI: 30.7 Tobacco Use/Counseling Tobacco use/counseling: tobacco user HTN Screening/Follow-up Last documented vitals: Last Documented: Result Date Time Pulse Ox 100 08/24 513 B/P 141/88 08/24 513 B/P Mean 105 08/24 513 O2 Delivery Room air 08/24 513 Temp 98.1 08/24 513 Pulse 78 08/24 513 Resp 18 08/24 513 at 0612 RPT #:[id number] END OF REPORT [facility] 2024-08-24 05:43:00 [facility] EMERGENCY PROVIDER REPORT REPORT#:[id number] REPORT STATUS: Signed DATE:08/24/24 TIME: 0543 PATIENT: CARMEN TAPIA UNIT #: [id number] ROOM/BED: [place] [id number] : 78 AGE: 43 SEX:M PCP PHYS: No Primary or Family Physician SERVICE AUTHOR: Alee Fernandez HOT MAN REP SRV REP SRV TM: 0512 * ALL edits or amendments must be made on the electronic/computer document * Alee Fernandez 08/24/24 0543: HPI-Chest Pain 40 and Over Free Text HPI Notes Free Text HPI Notes 43yo M in for evaluation of chest pain that started yesterday. Patient was seen at outside facility and transferred here for admission and cardiology consult. Patient has trop of 2253 and BNP of 268. Patient denies any medical history and reports 1 past surgical procedure. Patient reports current pain 01/22. General Confirmed Patient Yes Patient Type New patient Initial Greet Date/Time 08/24/24511 Presentation Chief Complaint Chest pain Hx Obtained From Patient Sudden in Onset? No )( Migration/Movement None Risk-Chest Pain 40 and Over Risk Stratification )( Coronary Artery Disease Risk factors reviewed )( Thoracic Aortic Dissection Risk factors reviewed )( Pulmonary Embolism Risk factors reviewed )( AMI-Aspirin Aspirin Last 24 Hrs 324 mg, On arrival )( HEART for MACE )( HEART for MACE Response Value History Low index of suspicion 0 ECG Interpretation Normal ECG 0 Age Age 45 - 65 1 Risk Factors for CAD 1-2 CAD risk factors 1 Troponin > or = to 3x NL trop 2 Total 4 Review of Systems ROS Statements All systems rev neg except as marked. Focused Review of Systems Cardiovascular Reports: Chest pain. Past Medical History - Adult Stated Complaint NSTEMI NEEDS HEART CATH Allergies Coded Allergies: No Known Allergies (08/24/24) Calculated Suicide Risk (nurs) No risk Review of Nursing Notes Triage notes reviewed, Rapid assess notes rev Smoking status for patients 13 years old or older: Current every day smoker Physical Exam Vital Signs Vital Signs First Documented: Result Date Time Pulse Ox 100 08/24 513 B/P 141/88 08/24 513 B/P Mean 105 08/24 513 O2 Delivery Room air 08/24 513 Temp 98.1 08/24 513 Pulse 78 08/24 513 Resp 18 08/24 513 Last Documented: Result Date Time Pulse Ox 100 08/24 513 B/P 141/88 08/24 513 B/P Mean 105 08/24 513 O2 Delivery Room air 08/24 513 Temp 98.1 08/24 513 Pulse 78 08/24 513 Resp 18 08/24 513 Review of Vital Signs Reviewed Focused PE General/Const General/Const Awake, Alert, No acute distress, Cooperative Resp/Chest Respiratory/Chest Atraumatic, Breath sounds NL, Breath sounds = bilat, No respiratory distress, No wheezing, No retractions Cardiovascular Cardiovascular Heart rate NL, Regular rhythm, Heart sounds NL, Cap refill not delayed, Peripheral circulation NL Abdomen/GI Abdomen/GI Atraumatic, Soft, Non-tender, BS normoactive, No distention Skin Skin Atraumatic, Color NL, No rash, Warm, Dry, Intact Neurologic Neurologic Oriented X3, Speech NL, No motor deficits, No sensory deficits Interpretation Diagnostics Lab Results Interpretation Results Laboratory Tests 08/24/24517: [Embedded Image Not Available] Laboratory Tests: 08/24 Chemistry Sodium (134 - 147 mEq/L) 138 Potassium (3.4 - 5.0 mEq/L) 4.3 Chloride (100 - 108 mEq/L) 106 Carbon Dioxide (21 - 33 mEq/l) 24 Anion Gap (0 - 20) 12 BUN (7 - 25 mg/dL) 11 Creatinine (0.6 - 1.3 mg/dL) 1.0 Glomerular Filtr Rate (95 - 105) 94.6 L Glucose (77 - 141 mg/dL) 84 Calcium (8.0 - 10.5 mg/dL) 10.0 Magnesium (1.6 - 2.6 mg/dL) 2.01 Total Bilirubin (0.0 - 1.0 mg/dL) 0.30 Direct Bilirubin (0.1 - 0.3 MG/DL) < 0.10 L Indirect Bilirubin (MG/DL) 0.20 AST (8 - 34 IUnit/L) 30 ALT (10 - 49 IUnit/L) 23 Total Alk Phosphatase (20 - 125 IUnit/L) 104 Troponin I High Sens (0 - 54 ng/L) 2767 *H Total Protein (6.4 - 8.2 g/dL) 7.4 Albumin (3.4 - 5.0 g/dL) 3.70 Triglycerides (40 - 150 mg/dL) 254 H Cholesterol (<200 mg/dL) 184 LDL Cholesterol Measurd (0 - 100 mg/dL) 129.0 H HDL Cholesterol (40 - 60 MG/DL) 30.4 L Cholesterol/HDL Ratio (3.43 - 4.97 RATIO) 6.05 H TSH (0.42 - 5.47 IU/mL) 1.05 Hematology WBC (4.5 - 11.0 x10 3/uL) 11.0 RBC (4.00 - 5.60 x10 6/uL) 5.52 Hgb (12.5 - 16.9 g/dL) 14.7 Hct (37.5 - 50.7 %) 44.9 MCV (81.0 - 99.0 fL) 81.3 MCH (27.0 - 33.0 pg) 26.6 L MCHC (33.0 - 37.0 g/dL) 32.7 L RDW (11.5 - 14.5 %) 15.7 H Plt Count (150 - 400 x10 3/uL) 237 MPV (7.0 - 9.0 fL) 9.4 H Lab Imaging Statement Laboratory radiographic studies reviewed and considered in the medical decision-making. Point of Care Testing Pulse Oximetry Pulse Ox % 100 On: Room air Interpretation Interpreted by me, Pulse oximetry normal Time 512 Re-Evaluation MDM Free Text MDM Notes Free Text MDM Notes 43yo M in for evaluation of chest pain, elevated troponin and need for cardiology consult. Plan to admit for cardiology consult. Patient troponin increased from 2238 to 2700. Patient admission accepted by Dr. Ethan MD. Differential Diagnosis )( Differential Diagnosis Acute coronary syndrome, Acute myocardial infarct, Chest pain, Chest pain, acute, Gastritis, GERD, Musculoskeletal pain, Peptic ulcer disease, Pneumonia, Stable angina, Unstable angina Patient Discharge Departure Vital Signs/Condition Vital Signs First Documented: Result Date Time Pulse Ox 100 08/24 513 B/P 141/88 08/24 513 B/P Mean 105 08/24 513 O2 Delivery Room air 08/24 513 Temp 98.1 08/24 513 Pulse 78 08/24 513 Resp 08/24 Last Documented: Result Date Time Pulse Ox 100 08/24 513 B/P 141/88 08/24 513 B/P Mean 105 08/24 513 O2 Delivery Room air 08/24 513 Temp 98.1 08/24 513 Pulse 78 08/24 513 Resp 18 08/24 513 All vital signs available at the time of this entry have been reviewed. Condition Stable Clinical Impression Clinical Impression Primary Impression: NSTEMI (non-ST elevated myocardial infarction) Disposition Decision Hospitalize Hosp Physician Name Irma Long MD Hosp Physician Hospitalist Request Time 0545 Request Date 08/24/24 )( Accepts Hospitalization Yes )( Reason for Hospitalization NSTEMI Chest Pain )( Accepted Time 0546 )( Accepted Date 08/24/24 Call Information will see patient Discharge/Care Plan (Auto) Prescriptions Current Visit Scripts NICOTINE (NICODERM CQ 14 MG) 14 MG TRANSDERM DAILY 30 Days #30 PATCH Ref 3 ATORVASTATIN (LIPITOR) 40 MG PO 2100 30 Days #30 TAB Ref 3 LOSARTAN 25 MG PO DAILY 30 Days #30 TAB Ref 3 carvediloL 3.125 MG PO C BK DIN 30 Days #60 TAB Ref 3 ASPIRIN EC (ECOTRIN) 81 MG PO DAILY 30 Days #30 TAB Ref 3 FAMOTIDINE (PEPCID) 20 MG PO DAILY 30 Days #30 TAB Ref 1 CLOPIDOGREL (PLAVIX) 75 MG PO DAILY 30 Days #30 TABS Ref 3 Gabriel Ruelas 09/01/24 0123: Patient Discharge Departure Supervising Physician Note MidLv Saw Pt Alone I have reviewed the PA/HOT MAN's note and plan of care. I was available for consultation as needed at all times during the patient's visit in the emergency department. I agree with the clinical impression, plan and disposition. at 0431 at 0124 RPT #:[id number] END OF REPORT [facility]
[2024-12-27 06:27] LABS: Absolute Basophils 0.1 K/uL (0-0.5); Absolute Eosinophils 0.1 K/uL (0-0.5); Absolute Lymphocytes (CBC) 1.5 K/uL (0.7-4.9); Absolute Monocytes 0.8 K/uL (0.1-1.3); Absolute Neutrophil 6.7 K/uL (1.8-8.0); Basophils % 1.1 % (0-1.3); Eosinophils % 0.9 % (0-4.4); Hematocrit 46.8 % (39.6-49.0); Hemoglobin 15.6 g/dL (13.6-17.9); Lymphocytes % 16.3 % (15.3-44.8); MCH 27.1 pg (27.0-35.0); MCHC 33.4 g/dL (32.0-36.0); MCV 81.4 fL (80-100); MPV 7.4 fL (7.6-11.3); Monocytes % 8.6 % (3.3-12.3); Neutrophils % 73.1 % (41.7-73.7); Nucleated Red Blood Cells % 0.1 % (0-0); Platelets 236 thou/uL (152-406); RBC Red Blood Cell Count 5.75 M/uL (4.33-5.43); Red Cell Distribution Width 15.1 % (12.1-15.2)
[2024-12-27 06:44] LABS: PT Prothrombin Time 12.2 SECONDS (10-13.0); Protime INR 1.07
[2024-12-27 06:47] LABS: ALT/SGPT 31 U/L (16-61); AST/SGOT 18 U/L (15-37); Albumin 3.2 g/dL (3.4-5.0); Albumin/Globulin Ratio 0.7 (1.1-1.8); Alkaline Phosphatase 138 U/L (45-117); Anion Gap 5.8 mEq/L (5.0-15.0); BUN Blood Urea Nitrogen 14 mg/dL (7-18); Bicarbonate 27 mEq/L (21-32); Bilirubin Total 0.3 mg/dL (0.2-1.0); Globulin 4.6 g/dL (2.3-3.5); Glomerular Filtration Rate 87 ml/min (=/>90); Glucose Level 154 mg/dL (74-106); Magnesium 2.1 mg/dL (1.6-2.4); NT PRO-BNP 153 pg/mL (<125); Potassium 3.8 mEq/L (3.5-5.1); Protein, Total 7.8 g/dL (6.4-8.2); Sodium Level 138 mEq/L (136-145); Troponin High Sensitivity 8.7 pg/mL (<58.9)
[2024-12-27 06:48] LABS: Bilirubin Direct < 0.2 mg/dL (0-0.2); Bilirubin Indirect, Calculated 0.1 mg/dL (0.2-0.8)
[2024-12-27] MEDS ORDERED: FAMOTIDINE 20 MG TAB ONE (06:58)
[2024-12-27] MEDS ORDERED: CLOPIDOGREL 75 MG TABLET ONE (06:58)
[2024-12-27] MEDS ORDERED: ASPIRIN 81 MG CHEWABLE TABLET ONE (06:58)
[2024-12-27] MEDS ORDERED: ATORVASTATIN 40 MG TAB ONE (06:58)
[2024-12-27] MEDS ORDERED: LOSARTAN POTASSIUM 50 MG TABLET ONE (06:59)
[2024-12-27] MEDS ORDERED: carvediloL 6.25 MG TAB ONE (07:10)
--- NOTE | 2024-12-27 07:51 | RAD REPORT ---
EXAMINATION: ONE VIEW CHEST XR CLINICAL INDICATION: CHEST PAIN TECHNIQUE: Frontal chest projection is submitted. Examination is limited by patient positioning and t echnique. COMPARISON: 09/23/2009 FINDINGS: The lungs are well inflated and clear. The heart is normal in size. No displaced fractures identified . IMPRESSION: No acute intrathoracic abnormalities.
--- NOTE | 2024-12-27 08:45 | EDPHYS ---
Physician Documentation [facility] Name: Trevin Tapia Age: 44 yrs Sex: Male : 1980 Arrival Date: 12/27/2024 Time: 05:59 Bed 18 Private MD: ED Physician Juno Fish HPI: 12/27 06:06 This 44 yrs old Black Male presents to ER via Unassigned with complaints of Chest Pain, sp4 Numbness Of Arm. 07:19 44-year-old with history of coronary artery disease and hypertension presents with sp4 acute onset midsternal sharp chest pain starting at 5 AM today. Patient states 4 months ago he was treated by Dr. Frances Ortega at [facility] for acute DE. Patient states he did not get a stent but he was found to have 30% blockage in one of the arteries. Patient states send on daily basis he takes famotidine 20 mg p.o. daily, losartan 25 mg p.o. daily, Coreg 3.125 p.o. twice daily, aspirin 81 mg daily, atorvastatin 40 mg daily, and Plavix 75 mg daily. Patient states that for the past 6 days he has been out of his medications.. Historical: - Allergies: 06:05 No Known Allergies; ha1 - PMHx: 06:05 Hypertensive disorder; Myocardial infarction; ha1 - Immunization history:: Adult Immunizations up to date. - Infectious Disease History:: Denies. - Social history:: Smoking status: Patient reports the use of cigarette tobacco products, smokes one-half pack cigarettes per day. - Family history:: not pertinent. ROS: 07:19 Constitutional: Negative for fever, chills, and weight loss, positive midsternal chest sp4 pain 07:19 All other systems are negative, Exam: 07:19 Constitutional: This is a well developed, well nourished patient who is awake, alert, sp4 and in no acute distress. Head/Face: Normocephalic, atraumatic. Eyes: Pupils equal round and reactive to light, extra-ocular motions intact. Lids and lashes normal. Conjunctiva and sclera are not injected. Cornea within normal limits. Periorbital areas with no swelling, redness, or edema. ENT: Nares patent. No nasal discharge, no septal abnormalities noted. Tympanic membranes are normal and external auditory canals are clear. Oropharynx with no redness, swelling, or masses, exudates, or evidence of obstruction, uvula midline. Mucous membranes moist. Neck: Trachea midline, no thyromegaly or masses palpated, and no cervical lymphadenopathy. Supple, full range of motion without nuchal rigidity, or vertebral point tenderness. Chest/axilla: Normal chest wall appearance and motion. Nontender with no deformity. No lesions are appreciated. Cardiovascular: Regular rate and rhythm with a normal S1 and S2. No gallops, murmurs, or rubs. Normal PMI, no JVD. No pulse deficits. Respiratory: Lungs have equal breath sounds bilaterally, clear to auscultation and percussion. No rales, rhonchi or wheezes noted. No increased work of breathing, no retractions or nasal flaring. Abdomen/GI: Soft, with normal bowel sounds. No distension or tympany. No guarding or rebound. No evidence of tenderness throughout. Back: No spinal tenderness. No costovertebral tenderness. Skin: Warm, dry with normal turgor. Normal color with no rashes, no lesions, and no evidence of cellulitis. MS/ Extremity: Pulses equal, no cyanosis. Neurovascular intact. Full, normal range of motion. Neuro: Awake and alert, GCS 15, oriented to person, place, time, and situation. Cranial nerves II-XII grossly intact. Motor strength 5/5 in all extremities. Sensory grossly intact. Psych: Awake, alert, with orientation to person, place and time. Behavior, mood, and affect are within normal limits 07:19 ECG was reviewed by the Attending Physician. EKG at 0 618 normal sinus rhythm rate 86 otherwise normal. Vital Signs: 06:25 BP 161 / 108; Pulse 88; Resp 18; Pulse Ox 99% on R/A; Pain 2/10; rg5 07:31 Temp 98(O); ap3 07:37 BP 145 / 93; Pulse 70; Pulse Ox 100% on R/A; ap3 08:53 BP 143 / 94; Pulse 72; Resp 17; Pulse Ox 99% on R/A; ap3 06:25 Pain Scale: Adult rg5 [place] Coma Score: 07:19 Eye Response: spontaneous(4). Motor Response: obeys commands(6). Verbal Response: sp4 oriented(5). Total: 15. MDM: 06:07 Medical Screening Exam initiated sp4 07:22 Differential diagnosis: acute myocardial infarction, acute pericarditis, anxiety, sp4 coronary artery disease chest wall pain, costochondritis, esophagitis, gastritis. HEART Score: History: Slightly Suspicious (0), ECG: Normal (0), Age: > 45 and < 65 years (1), Risk Factors: > or = 3 Risk factors for atherosclerotic disease (2), Troponin: < or = 1 x Normal Limit (0), Total Score = 3. Data reviewed: vital signs, nurses notes, old medical records, lab test result(s), EKG, radiologic studies, plain films. ED course: Care transferred to Dr. Fish . 08:43 ED course: Patient signed out to me by Dr. Huynh, plan is to repeat troponin and if rn negative discharge home with refill of his medication. Spoke with patient and he was aware of the plan and agrees. Patient states had an DE 4 months ago and has since seen cardiology and has been doing well. Patient believes chest pain as result of running out of his medication recently. Patient does not want to be admitted to the hospital. Patient has 2 negative troponins now and will discharge per original plan and patient's wish. Recommend cardiology follow-up given chest pain. Will refill medication.. 08:44 Counseling: I had a detailed discussion with the patient and/or guardian regarding the rn presence of at least one elevated blood pressure reading (>120/80) during this emergency department visit. Special discussion: I have referred the patient to see his PCP for further evaluation of high blood pressure. 12/27 06:06 Order name: Basic Metabolic Panel; Complete Time: 07:17 sp4 12/27 06:06 Order name: CBC with Diff; Complete Time: 06:30 sp4 12/27 06:06 Order name: LFT's; Complete Time: 07:17 sp4 12/27 06:06 Order name: Magnesium; Complete Time: 07:17 sp4 12/27 06:06 Order name: NT PRO-BNP; Complete Time: 07:17 sp4 12/27 06:06 Order name: PT-INR; Complete Time: 07:17 sp4 12/27 06:06 Order name: Troponin HS; Complete Time: 07:17 sp4 12/27 08:09 Order name: Troponin High Sensitivity; Complete Time: 08:37 rn 12/27 06:06 Order name: XRAY Chest (1 view); Complete Time: 07:53 sp4 12/27 06:06 Order name: Cardiac monitoring; Complete Time: 06:20 sp4 12/27 06:06 Order name: EKG - Nurse/Tech; Complete Time: 06:20 sp4 12/27 06:06 Order name: IV Saline Lock; Complete Time: 06:20 sp4 12/27 06:06 Order name: Labs collected and sent; Complete Time: 06:20 sp4 12/27 06:06 Order name: O2 Per Protocol; Complete Time: 06:20 sp4 12/27 06:06 Order name: O2 Sat Monitoring; Complete Time: 06:20 sp4 EC:18 Rate is 86 beats/min. Rhythm is regular, Normal Sinus Rhythm. QRS [place] is Normal. AL sp4 interval is normal. QRS interval is normal. QT interval is normal. No Q waves. T waves are Normal. No ST changes noted. Clinical impression: No evidence of ischemia. Interpreted by me. Reviewed by me. Administered Medications: 07:03 Drug: Famotidine PO 20 mg PO once Route: PO; rg5 08:54 Follow up: Response: No adverse reaction ap3 07:03 Drug: Losartan PO 25 mg PO once Route: PO; rg5 08:54 Follow up: Response: No adverse reaction; Blood pressure is lowered ap3 07:03 Drug: Atorvastatin PO 40 mg PO once Route: PO; rg5 08:53 Follow up: Response: No adverse reaction; Blood pressure is lowered ap3 07:04 Drug: Aspirin PO Chewable Tablet 324 mg PO once; 81 mg tablets x 4 Route: PO; rg5 08:54 Follow up: Response: No adverse reaction ap3 07:04 Drug: Clopidogrel PO 75 mg PO once Route: PO; rg5 08:54 Follow up: Response: No adverse reaction; Blood pressure is lowered ap3 07:26 Drug: Coreg PO 3.125 mg PO once; administer with food Route: PO; ap3 08:54 Follow up: Response: No adverse reaction; Blood pressure is lowered ap3 Disposition Summary: 12/27/24 08:44 Discharge Ordered Notes: Location: Home rn Problem: new rn Symptoms: have improved rn Condition: Stable rn Diagnosis - Chest pain, unspecified rn Followup: rn - With: Private Physician - When: As needed - Reason: Recheck today's complaints, Re-evaluation by your physician Discharge Instructions: - Nonspecific Chest Pain, Adult rn - Hypertension, Adult rn - Discharge Summary Sheet ap3 Forms: - Medication Reconciliation Form rn - Antibiotic financial internship - Prescription Opioid Use rn - Patient Portal Instructions rn - Leadership Thank You Letter rn - Work release form ap3 - SBAR form ap3 Prescriptions: - losartan 25 mg Oral tablet - take 1 tablet ORAL route daily; 60 tablet; Refills: 0, Product Selection rn Permitted - atorvastatin 40 mg Oral tablet - take 1 tablet ORAL route every evening; 60 tablet; Refills: 0, Product rn Selection Permitted - famotidine 20 mg Oral tablet - take 1 tablet ORAL route daily; 60 tablet; Refills: 0, Product Selection rn Permitted - Coreg 3.125 mg Oral tablet - take 1 tablet ORAL route every 12 hours with food; 60 tablet; Refills: 0, rn Product Selection Permitted - Plavix 75 mg Oral tablet - take 1 tablet ORAL route once daily; 60 tablet; Refills: 0, Product Selection rn Permitted Signatures: Dispatcher [employer] EDMS Juno iFsh MD MD rn Prokisch, Amanda, RN RN ap3 Teresa Arana RN RN ha1 Dillon Huynh MD MD sp4 Paco Steiner RN RN rg5 Corrections: (The following items were deleted from the chart) 06:07 06:07 BASIC METABOLIC PANEL+C.LAB.BRZ ordered. EDMS EDMS 06:07 06:07 CBC+H.LAB.BRZ ordered. EDMS EDMS 06:07 06:07 HEPATIC FUNCTION+C.LAB.BRZ ordered. EDMS EDMS 06:07 06:07 MAGNESIUM+C.LAB.BRZ ordered. EDMS EDMS 06:07 06:07 PROBNP+C.LAB.BRZ ordered. EDMS EDMS 06:07 06:07 PROTIME (+INR)+COAG.LAB.BRZ ordered. EDMS EDMS 06:07 06:07 Troponin High Sensitivity+C.LAB.BRZ ordered. EDMS EDMS 06:07 06:07 Chest Single View+RAD.RAD.BRZ ordered. EDMS EDMS
--- NOTE | 2024-12-27 08:45 | ER ---
Nurse's Notes [facility] Name: Trevin Tapia Age: 44 yrs Sex: Male : 1980 Arrival Date: 12/27/2024 Time: 05:59 Bed 18 Private MD: Diagnosis: Chest pain, unspecified Presentation: 12/27 06:05 Chief complaint: Patient states: CHEST PAIN THAT STARTED ONE HOUR AGO. OUT OF HOME MEDS ha1 FOR SIX DAYS. 06:05 Coronavirus screen: Client denies travel out of the [place] in the last 14 days. Ebola ha1 Screen: No symptoms or risks identified at this time. Initial Sepsis Screen: Does the patient meet any 2 criteria? No. Patient's initial sepsis screen is negative. Does the patient have a suspected source of infection? No. Patient's initial sepsis screen is negative. Risk Assessment: Do you want to hurt yourself or someone else? Patient reports no desire to harm self or others. Onset of symptoms was December 27, 2024. 06:05 Method Of Arrival: Ambulatory ha1 06:05 Acuity: FELICITY 2 ha1 Triage Assessment: 06:05 General: Appears comfortable, Behavior is calm, cooperative. Pain: Complains of pain in ha1 chest Pain does not radiate. Pain currently is 2 out of 10 on a pain scale. Neuro: Level of Consciousness is awake, alert, obeys commands, Oriented to person, place, time, situation. Cardiovascular: Patient's skin is warm and dry. Respiratory: Airway is patent Respiratory effort is even, unlabored, Respiratory pattern is regular, symmetrical. GI: Abdomen is round non-distended. Derm: Skin is normal. Historical: - Allergies: 06:05 No Known Allergies; ha1 - PMHx: 06:05 Hypertensive disorder; Myocardial infarction; ha1 - Immunization history:: Adult Immunizations up to date. - Infectious Disease History:: Denies. - Social history:: Smoking status: Patient reports the use of cigarette tobacco products, smokes one-half pack cigarettes per day. - Family history:: not pertinent. Screenin:25 [facility] ED Fall Risk Assessment (Adult) History of falling in the last 3 months, rg5 including since admission No falls in past 3 months (0 pts) Confusion or Disorientation No (0 pts) Intoxicated or Sedated No (0 pts) Impaired Gait No (0 pts) Mobility Assist Device Used No (0 pt) Altered Elimination No (0 pt) Score/Fall Risk Level 0 - 2 = Low Risk Oriented to surroundings, Maintained a safe environment, Hourly rounding (assess needs \T\ fall precautionary measures) done. Abuse screen: Denies threats or abuse. Nutritional screening: No deficits noted. Tuberculosis screening: No symptoms or risk factors identified. Assessment: 06:22 General: Appears in no apparent distress. Behavior is calm, cooperative, appropriate rg5 for age. Pain: Complains of pain in chest Pain does not radiate. Pain currently is 2 out of 10 on a pain scale. Quality of pain is described as aching, Pain began 1 hour ago. Neuro: Level of Consciousness is awake, alert, obeys commands, Oriented to person, place, time, situation. Cardiovascular: Reports chest pain, Rhythm is sinus rhythm. Respiratory: Airway is patent Trachea midline Respiratory effort is even, unlabored, Breath sounds are clear. GI: Abdomen is round non-distended. : No signs and/or symptoms were reported regarding the genitourinary system. EENT: No deficits noted. Derm: Skin is intact, Skin is dry, Skin is normal. 07:27 Reassessment: No changes from previously documented assessment. Patient and/or family ap3 updated on plan of care and expected duration. Pain level reassessed. General: Appears in no apparent distress. Behavior is calm, cooperative, appropriate for age. Neuro: Level of Consciousness is awake, alert, obeys commands, Oriented to person, place, time, situation, Appropriate for age. Cardiovascular: Patient's skin is warm and dry. Respiratory: Airway is patent Respiratory effort is even, unlabored. Vital Signs: 06:25 BP 161 / 108; Pulse 88; Resp 18; Pulse Ox 99% on R/A; Pain 2/10; rg5 07:31 Temp 98(O); ap3 07:37 BP 145 / 93; Pulse 70; Pulse Ox 100% on R/A; ap3 08:53 BP 143 / 94; Pulse 72; Resp 17; Pulse Ox 99% on R/A; ap3 06:25 Pain Scale: Adult rg5 [place] Coma Score: 07:19 Eye Response: spontaneous(4). Motor Response: obeys commands(6). Verbal Response: sp4 oriented(5). Total: 15. ED Course: 06:04 Patient arrived in ED. gm2 06:06 Dillon Huynh MD is Attending Physician. sp4 06:11 Paco Steiner, CRYSTAL is Primary Nurse. rg5 06:25 Patient has correct armband on for positive identification. Bed in low position. Call rg5 light in reach. Client placed on continuous cardiac and pulse oximetry monitoring. NIBP monitoring applied. secured entrance monitor on. Pulse ox on. Door closed. Noise minimized. 06:25 No provider procedures requiring assistance completed. Inserted saline lock: 20 gauge rg5 in left forearm, using aseptic technique. Blood collected. Flushed with 10 mL NS. 06:28 XRAY Chest (1 view) In Process Unspecified. EDMS 06:35 Triage completed. ha1 07:27 secured entrance monitor on. Pulse ox on. NIBP on. ap3 07:28 Arm band placed on right wrist. ap3 07:28 Patient maintains SpO2 saturation greater than 95% on room air. ap3 07:50 Attending Physician role handed off by Dillon Huynh MD rn 07:50 Juno Fish MD is Attending Physician. rn 08:28 Troponin High Sensitivity Sent. ld1 08:58 Provided Education on: discharge instructions. ap3 08:58 IV discontinued, intact, bleeding controlled, No redness/swelling at site. Pressure ap3 dressing applied. Administered Medications: 07:03 Drug: Famotidine PO 20 mg PO once Route: PO; rg5 08:54 Follow up: Response: No adverse reaction ap3 07:03 Drug: Losartan PO 25 mg PO once Route: PO; rg5 08:54 Follow up: Response: No adverse reaction; Blood pressure is lowered ap3 07:03 Drug: Atorvastatin PO 40 mg PO once Route: PO; rg5 08:53 Follow up: Response: No adverse reaction; Blood pressure is lowered ap3 07:04 Drug: Aspirin PO Chewable Tablet 324 mg PO once; 81 mg tablets x 4 Route: PO; rg5 08:54 Follow up: Response: No adverse reaction ap3 07:04 Drug: Clopidogrel PO 75 mg PO once Route: PO; rg5 08:54 Follow up: Response: No adverse reaction; Blood pressure is lowered ap3 07:26 Drug: Coreg PO 3.125 mg PO once; administer with food Route: PO; ap3 08:54 Follow up: Response: No adverse reaction; Blood pressure is lowered ap3 Medication: 06:25 VIS not applicable for this client. rg5 Outcome: 08:44 Discharge ordered by . rn 08:57 Discharged to home ambulatory, ap3 08:57 Condition: good 08:57 Discharge instructions given to patient, Instructed on discharge instructions, follow up and referral plans. medication usage, Demonstrated understanding of instructions, follow-up care, medications, Prescriptions given X 5 09:00 Patient left the ED. ap3 Signatures: Dispatcher [employer] EDMS Juno Fish MD MD rn Prokisch, Amanda, RN RN ap3 Frances Evans RN RN ld1 Teresa Arana RN RN sarah1 Dillon uHynh MD MD sp4 Alicia Stahl 2 Paco Steiner RN RN rg5
[2024-12-27 09:06] VITALS: TEMP 98
[2024-12-27 09:09] VITALS: BP 143/94; O2SAT 99
--- NOTE | 2024-12-27 10:46 | EKG ---
Test Date: 2024-12-27 Test Time: 06:18:19 Taxonomy Teacher: MAX MEASUREMENT RESULTS: Intervals: Rate: 86 TX: 192 QRSD: 100 QT: 368 QTc: 440 [place]: P: 73 TX: 192 QRS: 86 T: 79 INTERPRETIVE STATEMENTS: Normal sinus rhythm Nonspecific ST and T wave abnormality Abnormal ECG No previous ECG available for comparison Electronically Signed On 12-27-24 10:46:14 CDT by Romie Mares
== END 2024-12-27 09:00 | disposition home or self-care (01) ==
LOC: ER 05:59
DX: R07.9 Chest pain, unspecified (principal); I10 Essential (primary) hypertension; I25.2 Old myocardial infarction; F17.210 Nicotine dependence, cigarettes, uncomplicated
CPT/HCPCS: 36415; 71045; 80048; 80076; 83735; 83880; 84484; 85025; 85610; 93005; 99284